=== PATIENT | male | born 1975 | race Caucasian/White ===

== ENCOUNTER 2020-05-15 22:47 | Observation (INO) ==
--- NOTE | 2020-05-15 23:58 | DR.EXTPAIN ---
HPI Time seen Time Seen by Provider: 05/15/20 23:11 PCP Primary Care Physician: SCOTTIE Complaint/Symptoms Chief Complaint Doctor Comments: Patient with History of drug abuse, bipolar disorder and seizures. Patient states he is homeless. Chief Complaint:: "PT ARRIVED EMS WITH STOAMCH PAIN AND OFF METH FOR 2 DAYS. PATIENT SAYS HE WANTS TO GET HELP" COVID-19 Coronavirus risk:travel/contact w/high risk person: No Has patient experienced Coronavirus symptoms: No Nurses notes reviewed Nurses Notes Review: Yes Source History Provided: Patient Mode of arrival Mode of Arrival: EMS Timing Onset of Chief Complaint: 05/13/20 Context History of: None Associated signs and symptoms Associated Signs and Symptoms: Abdominal Pain PMH PMH Past Medical History: Yes Past Medical History: Anxiety, Coronary Artery Disease and Depression Past Medical History Comment: PTSD/OCD/MANIC PARANOIA/ BIPOLAR Past Surgical History: Yes Surgical History: Angioplasty/Stents Family History History of Family Medical Conditions: No Social History Does patient currently use any type of tobacco product: Yes Have you used tobacco products in the last 12 months: Yes Type of Tobacco Use: Cigarettes How many years tobacco product used: 34 Does any household member use tobacco: Yes Alcohol Use: None Do you use any recreational Drugs:: Yes (METH/MARIJUANA) Lives With: Alone Lives Where: Homeless Travel Risk Coronavirus risk:travel/contact w/high risk person: No Has patient experienced Coronavirus symptoms: No Infectious screening In the last 2 months have you had wt loss of >10#?: YES Have you had fever, night sweats or hemotysis?: No Have you traveled outside the country in the last 6 months?: No Isolation: Standard ROS Review of Systems Constitutional: No Symptoms Reported Eyes: No Symptoms Reported ENTM: No Symptoms Reported Respiratoy: No Symptoms Reported Cardiovascular: No Symptoms Reported Gastrointestinal/Abdominal: Abdominal Pain (epigasric); negative Diarrhea and Vomiting Genitourinary: No Symptoms Reported Neurological: No Symptoms Reported Musculoskeletal: No Symptoms Reported Integumentary: No Symptoms Reported Endocrine: No Symptoms Reported Psychiatric: Depression PE Vital Signs Vitals: Temperature 98.9 F Pulse Rate [Right Radial] 78 Pulse Rate 79 Respiratory Rate 20 Blood Pressure [Right Arm] 125/69 Blood Pressure 111/72 O2 Sat by Pulse Oximetry 96 General Limitations: No Limitations General Appearance: Alert and In No Apparent Distress Head Head Exam: Normal Inspection, Atraumatic and Normocephalic Eyes Eye exam: Normal Appearance and EOMI ENT ENT Exam: Normal Exam and Normal Oropharynx Neck Neck Exam: Normal Inspection, Full ROM and Trachea Midline Chest Chest Inspection: Normal Inspection Respiratory Respiratory Exam: Normal Lung Sounds Bilat Respiratory Exam: Bilateral: Clear to Auscultation Cardiovascular Cardiovascular Exam: Regular Rate and Normal Rhythm Abdominal Exam Abdominal Exam: Normal Inspection, Normal Bowel Sounds, Soft and Tenderness; negative Distention and Guarding Abdominal Tenderness: Epigastrium Extremities Extremities Exam: Normal Inspection and Full ROM Upper Extremities Shoulder Exam: Normal Inspection and Full ROM Arm Exam: Normal Inspection and Full ROM Elbow Exam: Normal Inspection and Full ROM Forearm Exam: Normal Inspection and Full ROM Hand Exam: Normal Inspection and Full ROM Neuromotor Exam: Normal Exam Neurosensory Exam: Normal Exam Lower Extremities Hip/Pelvis Exam: Normal Inspection and Full ROM Upper Leg Exam: Normal Inspection and Full ROM Knee Exam: Normal Inspection and Full ROM Lower Leg Exam: Normal Inspection and Full ROM Ankle Exam: Normal Inspection and Full ROM Foot/Toe Exam: Normal Inspection and Full ROM Neurovascular/Tendon Exam: Normal Capillary Refill Back Back Exam: Normal Inspection and Full ROM Neurological Neurological Exam: Alert, Oriented X3, CN II-XII Intact and Normal Gait Psychiatric Psychiatric Exam: Depressed Skin Skin Exam: Normal Color COURSE Consultation Called: 07:11 Call Returned: 07:11 Consultation Comments: case discussed with DR. Aydee aragon ROR Labs Reviewed Result Diagrams: 05/16/20 06:19 05/16/20 00:12 Laboratory: WBC 20.4 X10^3/uL (3.6-10.0) H 05/16/20 06:19 RBC 4.17 X10^6/uL (4.7-6.0) L 05/16/20 06:19 Hgb 12.3 g/dL (13.5-18.0) L 05/16/20 06:19 Hct 36.2 % (42.0-54.0) L 05/16/20 06:19 MCV 86.7 fL (80.0-100.0) 05/16/20 06:19 MCH 29.6 pg (27.0-34.0) 05/16/20 06:19 MCHC 34.1 g/dL (33.0-35.0) 05/16/20 06:19 RDW 13.5 % (11.6-16.5) 05/16/20 06:19 Plt Count 222 X10^3/uL (150.0-450.0) 05/16/20 06:19 MPV 8.2 fL (7.4-11.0) 05/16/20 06:19 Neut % (Auto) 83.7 % (42.0-75.0) H 05/16/20 06:19 Lymph % (Auto) 8.8 % (21.0-51.0) L 05/16/20 06:19 [place] % (Auto) 6.7 % (0.0-13.0) 05/16/20 06:19 Eos % (Auto) 0.4 % (0.9-2.9) L 05/16/20 06:19 Baso % (Auto) 0.4 % (0.2-1.0) 05/16/20 06:19 Neut # (Auto) 17.1 x10^3/uL (2.2-4.8) H 05/16/20 06:19 Lymph # (Auto) 1.8 X10^3/uL (1.3-2.9) 05/16/20 06:19 [place] # (Auto) 1.4 x10^3/uL (0.3-0.8) H 05/16/20 06:19 Eos # (Auto) 0.1 x10^3/uL (0.0-0.2) 05/16/20 06:19 Baso # (Auto) 0.1 X10^3/uL (0.0-0.1) 05/16/20 06:19 Absolute Nucleated RBC 0.0 /100WBC 05/16/20 06:19 Sodium 138 mmol/L (136-145) 05/16/20 00:12 Corrected Sodium 139 mmol/L (136-145) 05/16/20 00:12 Potassium 3.7 mmol/L (3.5-5.1) 05/16/20 00:12 Chloride 101 mmol/L (98-107) 05/16/20 00:12 Carbon Dioxide 28.0 mmol/L (21-32) 05/16/20 00:12 BUN 11 mg/dL (7-18) 05/16/20 00:12 Creatinine 1.12 mg/dL (0.70-1.30) 05/16/20 00:12 Est GFR (MDRD) Af Amer > 60 (>60) 05/16/20 00:12 Est GFR (MDRD) Non-Af > 60 (>60) 05/16/20 00:12 Glucose 129 mg/dL (65-99) H 05/16/20 00:12 Calcium 9.0 mg/dL (8.5-10.1) 05/16/20 00:12 Corrected Calcium TNP 05/16/20 00:12 Total Bilirubin 0.20 mg/dL (0.2-1.0) 05/16/20 00:12 AST 14 Units/L (15-37) L 05/16/20 00:12 ALT 20 Units/L (12-78) 05/16/20 00:12 Alkaline Phosphatase 88 Units/L (46-116) 05/16/20 00:12 Total Protein 6.7 g/dL (6.4-8.2) 05/16/20 00:12 Albumin 3.6 g/dL (3.4-5.0) 05/16/20 00:12 Globulin 3.1 g/dL (2.5-4.5) 05/16/20 00:12 Albumin/Globulin Ratio 1.2 Ratio (1.1-2.1) 05/16/20 00:12 Specimen Type Clean catch urine 05/16/20 04:38 Urine Color Yellow (YELLOW) 05/16/20 04:38 Urine Appearance Clear (CLEAR) 05/16/20 04:38 Urine pH 6.5 (5.0 - 8.0) 05/16/20 04:38 Ur Specific [place] 1.020 (1.000-1.030) 05/16/20 04:38 Urine Protein 1+ (NEGATIVE) 05/16/20 04:38 Urine Glucose (UA) Negative (NEGATIVE) 05/16/20 04:38 Urine Ketones Negative (NEGATIVE) 05/16/20 04:38 Urine Occult Blood 2+ (NEGATIVE) 05/16/20 04:38 Urine Nitrite Negative (NEGATIVE) 05/16/20 04:38 Urine Bilirubin Negative (NEGATIVE) 05/16/20 04:38 Urine Urobilinogen 1+ (NORMAL) 05/16/20 04:38 Ur Leukocyte Esterase 3+ (NEGATIVE) 05/16/20 04:38 Urine RBC 3-5 /HPF (0-3) A 05/16/20 04:38 Urine WBC 5-10 /HPF (0-5) A 05/16/20 04:38 Ur Squamous Epith Cells Few /HPF (NEGATIVE) 05/16/20 04:38 Urine Bacteria 1+ /HPF (NEGATIVE) 05/16/20 04:38 Urine Mucus Numerous /HPF (NEGATIVE) 05/16/20 04:38 Ur Culture Indicated? No/not indicated 05/16/20 04:38 Salicylates 4.6 mg/dL (2.8-20) 05/16/20 00:12 Urine Opiates Screen Negative (NEG=<300) 05/16/20 04:38 Urine Methadone Screen Negative (NEG=<300) 05/16/20 04:38 Acetaminophen 0.0 ug/mL (10-30) L 05/16/20 00:12 Ur Barbiturates Screen Negative (NEG=<200) 05/16/20 04:38 Ur Phencyclidine Scrn Negative (NEG=<25) 05/16/20 04:38 Ur Amphetamines Screen Positive (NEG=<1000) 05/16/20 04:38 U Benzodiazepines Scrn Negative (NEG=<200) 05/16/20 04:38 Urine Cocaine Screen Negative (NEG=<300) 05/16/20 04:38 U Marijuana (THC) Screen Positive (NEG=<50) A 05/16/20 04:38 Ethyl Alcohol mg/dL 3 mg/dL (0-19.9) 05/16/20 00:12 XRAY XRAY Interpreted by: Radiologist X-ray Results: chest: normal Opioid Opioid Risk Tool Age (Jose box if 16-45): Yes Total: 1 Total Score Risk Category: Low Risk Copyright: Kin LEAL predicting aberrant behaviors Diagnosis Discharge Problem: Acute UTI, Amphetamine abuse Elevated WBC count Qualifiers: Leukocytosis type: unspecified Qualified Code(s): D72.829 - Elevated white blood cell count, unspecified Instructions Forms: Precautions for COVID19 Patient Portal Social Distancing
[2020-05-16] MEDS ORDERED: LEVSIN/MAALOX/LIDOC VISC PO ONE (00:10)
[2020-05-16] MEDS ORDERED: LEVSIN/MAALOX/LIDOC VISC ONE (00:13)
[2020-05-16 00:22] LABS: BASOPHILS # (AUTO) 0.1 X10^3/uL (0.0-0.1); BASOPHILS % (AUTO) 0.4 % (0.2-1.0); EOSINOPHILS # (AUTO) 0.2 x10^3/uL (0.0-0.2); EOSINOPHILS % (AUTO) 0.9 % (0.9-2.9); HEMATOCRIT 39.2 % (42.0-54.0); HEMOGLOBIN 13.1 g/dL (13.5-18.0); LYMPHOCYTES # (AUTO) 2.2 X10^3/uL (1.3-2.9); LYMPHOCYTES % (AUTO) 11.9 % (21.0-51.0); MEAN CORPUSCULAR HEMOGLOBIN 29.4 pg (27.0-34.0); MEAN CORPUSCULAR HGB CONC 33.5 g/dL (33.0-35.0); MEAN CORPUSCULAR VOLUME 87.8 fL (80.0-100.0); MEAN PLATELET VOLUME 8.1 fL (7.4-11.0); MONOCYTES # (AUTO) 1.5 x10^3/uL (0.3-0.8); MONOCYTES % (AUTO) 8.1 % (0.0-13.0); NEUTROPHILS # (AUTO) 14.7 x10^3/uL (2.2-4.8); NEUTROPHILS % (AUTO) 78.7 % (42.0-75.0); PLATELET COUNT 234 X10^3/uL (150.0-450.0); RED BLOOD COUNT 4.46 X10^6/uL (4.7-6.0); RED CELL DISTRIBUTION WIDTH 13.6 % (11.6-16.5); WHITE BLOOD COUNT 18.7 X10^3/uL (3.6-10.0)
[2020-05-16 00:35] LABS: SALICYLATE 4.6 mg/dL (2.8-20)
[2020-05-16 00:44] LABS: ALANINE AMINOTRANSFERASE 20 Units/L (12-78); ALBUMIN 3.6 g/dL (3.4-5.0); ALKALINE PHOSPHATASE 88 Units/L (46-116); ASPARTATE AMINO TRANSFERASE 14 Units/L (15-37); BLOOD ALCOHOL 3 mg/dL (0-19.9); BLOOD UREA NITROGEN 11 mg/dL (7-18); CHLORIDE 101 mmol/L (98-107); COR NA(FOR HYPERGLY) 139 mmol/L (136-145); CREATININE 1.12 mg/dL (0.70-1.30); SODIUM 138 mmol/L (136-145); TOTAL PROTEIN 6.7 g/dL (6.4-8.2); eGFR NON BLACK RACES > 60 (>60)
[2020-05-16] MEDS ORDERED: NS 1000 ML 1,000 ML IV ONE (01:01)
--- NOTE | 2020-05-16 01:06 | RAD ---
STUDY: FRONTAL VIEW CHESTCOMPARISON: NoneHISTORY: coughFINDINGS:No focal consolidation is seen.The heart size is within normal limits.The mediastinum is unremarkable.There is no evidence of pleural effusion or gross pneumothorax.The trachea is midline.IMPRESSION:1. No focal consolidation is seen.2. The heart size is normal.Electronically signed by: Artemio Blandon (May 16, 2020 01:04:51)
[2020-05-16] MEDS ORDERED: NS 1000 ML 1,000 ML ONE (01:07)
[2020-05-16 04:46] LABS: BILIRUBIN,URINE NEGATIVE (NEGATIVE); BLOOD/HEMOGLOBIN,URINE 2+ (NEGATIVE); GLUCOSE, URINE NEGATIVE (NEGATIVE); KETONES,URINE NEGATIVE (NEGATIVE); LEUKOCYTE ESTERASE ,URINE 3+ (NEGATIVE); NITRITES,URINE NEGATIVE (NEGATIVE); PH,URINE 6.5 (5.0 - 8.0); PROTEIN,URINE 1+ (NEGATIVE); UROBILINOGEN,URINE 1+ (NORMAL)
[2020-05-16 04:54] LABS: COLOR,URINE YELLOW (YELLOW)
[2020-05-16 04:55] LABS: APPEARANCE,URINE CLEAR (CLEAR); BACTERIA,URINE 1+ /HPF (NEGATIVE); MUCUS,URINE NUMEROUS /HPF (NEGATIVE); SQUAMOUS EPITHELIAL CELL,UR FEW /HPF (NEGATIVE)
[2020-05-16] MEDS ORDERED: ROCEPHIN VIAL 1 GRAM 1 G in NS 100 ML IV + SPIKE MINIBAG* 100 ML IV STA (06:03)
[2020-05-16] MEDS ORDERED: ROCEPHIN VIAL 1 GRAM ONE (06:21)
[2020-05-16] MEDS ORDERED: NS 100 ML IV + SPIKE MINIBAG* 100 ML IV ONE (06:21)
[2020-05-16] MEDS ORDERED: NS 100 ML IV 100 ML IV ONE (06:28)
[2020-05-16] MEDS: NS 100 ML IV 100 ML IV SCH ×2 (06:35→08:52)
[2020-05-16] MEDS ORDERED: MOTRIN TAB 800 MG PO STA (06:37)
[2020-05-16 06:50] LABS: BASOPHILS # (AUTO) 0.1 X10^3/uL (0.0-0.1); BASOPHILS % (AUTO) 0.4 % (0.2-1.0); EOSINOPHILS # (AUTO) 0.1 x10^3/uL (0.0-0.2); EOSINOPHILS % (AUTO) 0.4 % (0.9-2.9); HEMATOCRIT 36.2 % (42.0-54.0); HEMOGLOBIN 12.3 g/dL (13.5-18.0); LYMPHOCYTES # (AUTO) 1.8 X10^3/uL (1.3-2.9); LYMPHOCYTES % (AUTO) 8.8 % (21.0-51.0); MEAN CORPUSCULAR HEMOGLOBIN 29.6 pg (27.0-34.0); MEAN CORPUSCULAR HGB CONC 34.1 g/dL (33.0-35.0); MEAN CORPUSCULAR VOLUME 86.7 fL (80.0-100.0); MEAN PLATELET VOLUME 8.2 fL (7.4-11.0); MONOCYTES # (AUTO) 1.4 x10^3/uL (0.3-0.8); MONOCYTES % (AUTO) 6.7 % (0.0-13.0); NEUTROPHILS # (AUTO) 17.1 x10^3/uL (2.2-4.8); NEUTROPHILS % (AUTO) 83.7 % (42.0-75.0); PLATELET COUNT 222 X10^3/uL (150.0-450.0); RED BLOOD COUNT 4.17 X10^6/uL (4.7-6.0); RED CELL DISTRIBUTION WIDTH 13.5 % (11.6-16.5); WHITE BLOOD COUNT 20.4 X10^3/uL (3.6-10.0)
[2020-05-16] MEDS ORDERED: MOTRIN TAB 800 MG PO ONE (06:56)
[2020-05-16] MEDS ORDERED: ZOFRAN INJ 4 MG VIAL IVP PRN (07:21)
[2020-05-16] MEDS ORDERED: PROTONIX INJ 40 MG VIAL IVP SCH (09:00)
[2020-05-16] MEDS: NS 1000 ML 1,000 ML IV SCH ×2 (09:50→17:36)
[2020-05-16 10:33] VITALS: BMI 27.8
[2020-05-16] MEDS ORDERED: PROVENTIL NEB TX 0.083% 2.5MG/ 3ML NEB PRN (11:19)
--- NOTE | 2020-05-16 11:30 | DR.H&P ---
H&P History & Physical for Day of: H&P Date: 05/16/20 Chief Complaint Chief Complaint: abdominal pain, meth use Allergies Allergies Allergy/AdvReac Type Severity Reaction Status Date / Time No Known Drug Allergies Allergy Verified 05/16/20 05:32 History of Present Illness History of Present Illness: Mr. Oconnor is a 44y/o male with a PMH of methamphetamine abuse, bipolar, seizures and CAD s/p PCI presented with nausea and abdominal pain. Patient states he used meth 3 days ago. He states his abdominal pain is better now. He also has a hx of GERD. He sees [facility] for his psych history. He has been afebrile, denies chills. ED work-up- WBC 18.4, now 20.4 Hgb 12.3 Na 139 K 3.7 BUN/Cr: 04/04.12 UA: WBC present, NONI 3+ Bacteria present CXR (-) COVID-19 (-) He was started on IVF, anti-emetics and Rocephin. He also received pantoprazole and GI cocktail. Plan: continue gentle hydration, anti-emetics. Check lipase, monitor AM labs. Continue pantoprazole. Advance diet as tolerated. Follow urine culture. Continue Rocephin. Resume home medications. Past Medical History Past Medical History: Anxiety, Coronary Artery Disease, Depression and GERD Additional Medical History: Drug abuse Past Surgical History Surgical History: Angioplasty/Stents Family History Family Medical History: Coronary Artery Disease and Hypertension Social History Does patient currently use any type of tobacco product: Yes Have you used tobacco products in the last 12 months: Yes Type of Tobacco Use: Cigarettes How many years tobacco product used: 30 Does any household member use tobacco: Yes (my family) Alcohol Use: Occasionally Drug Use: Methamphetamine, Marijuana and Other Medications Home Medications: No Known Drug Allergies Allergy (Verified 05/16/20 05:32) CONTINUE taking the following medications albuterol sulfate [ProAir HFA] 2 inh INHALATION Q4-6H PRN 05/16/20 [History] alum-mag hydroxide-simeth [Maalox Advanced] 10 ml PO Q4H PRN 05/16/20 [History] benztropine 1 mg PO HS 05/16/20 [History] buspirone 15 mg PO BID 05/16/20 [History] clopidogrel 75 mg PO DAILY 05/16/20 [History] divalproex [Depakote] 1,000 mg PO HS 05/16/20 [History] esomeprazole magnesium 40 mg PO DAILY 05/16/20 [History] fluoxetine 40 mg PO DAILY 05/16/20 [History] food supplemt, lactose-reduced [Ensure] 1 ea PO DAILY 05/16/20 [History] gabapentin 100 mg PO DAILY 05/16/20 [History] gabapentin 300 mg PO HS 05/16/20 [History] hydroxyzine pamoate 50 mg PO Q8H PRN 05/16/20 [History] ibuprofen [IBU-200] 200 mg PO Q4H PRN 05/16/20 [History] metoprolol succinate 50 mg PO DAILY 05/16/20 [History] multivitamin 1 tab PO DAILY 05/16/20 [History] nicotine 21 mg TRANSDERMAL DAILY 05/16/20 [History] ondansetron HCl [Zofran] 4 mg PO Q8H PRN 05/16/20 [History] prazosin 1 mg PO HS 05/16/20 [History] risperidone [Risperdal] 2 mg PO HS 05/16/20 [History] trazodone 50 mg PO HS 05/16/20 [History] Labs Result Diagrams: 05/16/20 06:19 05/16/20 00:12 Labs: Laboratory WBC 20.4 X10^3/uL (3.6-10.0) H 05/16/20 06:19 RBC 4.17 X10^6/uL (4.7-6.0) L 05/16/20 06:19 Hgb 12.3 g/dL (13.5-18.0) L 05/16/20 06:19 Hct 36.2 % (42.0-54.0) L 05/16/20 06:19 MCV 86.7 fL (80.0-100.0) 05/16/20 06:19 MCH 29.6 pg (27.0-34.0) 05/16/20 06:19 MCHC 34.1 g/dL (33.0-35.0) 05/16/20 06:19 RDW 13.5 % (11.6-16.5) 05/16/20 06:19 Plt Count 222 X10^3/uL (150.0-450.0) 05/16/20 06:19 MPV 8.2 fL (7.4-11.0) 05/16/20 06:19 Neut % (Auto) 83.7 % (42.0-75.0) H 05/16/20 06:19 Lymph % (Auto) 8.8 % (21.0-51.0) L 05/16/20 06:19 [place] % (Auto) 6.7 % (0.0-13.0) 05/16/20 06:19 Eos % (Auto) 0.4 % (0.9-2.9) L 05/16/20 06:19 Baso % (Auto) 0.4 % (0.2-1.0) 05/16/20 06:19 Neut # (Auto) 17.1 x10^3/uL (2.2-4.8) H 05/16/20 06:19 Lymph # (Auto) 1.8 X10^3/uL (1.3-2.9) 05/16/20 06:19 [place] # (Auto) 1.4 x10^3/uL (0.3-0.8) H 05/16/20 06:19 Eos # (Auto) 0.1 x10^3/uL (0.0-0.2) 05/16/20 06:19 Baso # (Auto) 0.1 X10^3/uL (0.0-0.1) 05/16/20 06:19 Absolute Nucleated RBC 0.0 /100WBC 05/16/20 06:19 Sodium 138 mmol/L (136-145) 05/16/20 00:12 Corrected Sodium 139 mmol/L (136-145) 05/16/20 00:12 Potassium 3.7 mmol/L (3.5-5.1) 05/16/20 00:12 Chloride 101 mmol/L (98-107) 05/16/20 00:12 Carbon Dioxide 28.0 mmol/L (21-32) 05/16/20 00:12 BUN 11 mg/dL (7-18) 05/16/20 00:12 Creatinine 1.12 mg/dL (0.70-1.30) 05/16/20 00:12 Est GFR (MDRD) Af Amer > 60 (>60) 05/16/20 00:12 Est GFR (MDRD) Non-Af > 60 (>60) 05/16/20 00:12 Glucose 129 mg/dL (65-99) H 05/16/20 00:12 Calcium 9.0 mg/dL (8.5-10.1) 05/16/20 00:12 Corrected Calcium TNP 05/16/20 00:12 Magnesium 1.9 mg/dL (1.7-2.9) 05/16/20 00:12 Total Bilirubin 0.20 mg/dL (0.2-1.0) 05/16/20 00:12 AST 14 Units/L (15-37) L 05/16/20 00:12 ALT 20 Units/L (12-78) 05/16/20 00:12 Alkaline Phosphatase 88 Units/L (46-116) 05/16/20 00:12 Total Protein 6.7 g/dL (6.4-8.2) 05/16/20 00:12 Albumin 3.6 g/dL (3.4-5.0) 05/16/20 00:12 Globulin 3.1 g/dL (2.5-4.5) 05/16/20 00:12 Albumin/Globulin Ratio 1.2 Ratio (1.1-2.1) 05/16/20 00:12 Specimen Type Clean catch urine 05/16/20 04:38 Urine Color Yellow (YELLOW) 05/16/20 04:38 Urine Appearance Clear (CLEAR) 05/16/20 04:38 Urine pH 6.5 (5.0 - 8.0) 05/16/20 04:38 Ur Specific [place] 1.020 (1.000-1.030) 05/16/20 04:38 Urine Protein 1+ (NEGATIVE) 05/16/20 04:38 Urine Glucose (UA) Negative (NEGATIVE) 05/16/20 04:38 Urine Ketones Negative (NEGATIVE) 05/16/20 04:38 Urine Occult Blood 2+ (NEGATIVE) 05/16/20 04:38 Urine Nitrite Negative (NEGATIVE) 05/16/20 04:38 Urine Bilirubin Negative (NEGATIVE) 05/16/20 04:38 Urine Urobilinogen 1+ (NORMAL) 05/16/20 04:38 Ur Leukocyte Esterase 3+ (NEGATIVE) 05/16/20 04:38 Urine RBC 3-5 /HPF (0-3) A 05/16/20 04:38 Urine WBC 5-10 /HPF (0-5) A 05/16/20 04:38 Ur Squamous Epith Cells Few /HPF (NEGATIVE) 05/16/20 04:38 Urine Bacteria 1+ /HPF (NEGATIVE) 05/16/20 04:38 Urine Mucus Numerous /HPF (NEGATIVE) 05/16/20 04:38 Ur Culture Indicated? No/not indicated 05/16/20 04:38 Salicylates 4.6 mg/dL (2.8-20) 05/16/20 00:12 Urine Opiates Screen Negative (NEG=<300) 05/16/20 04:38 Urine Methadone Screen Negative (NEG=<300) 05/16/20 04:38 Acetaminophen 0.0 ug/mL (10-30) L 05/16/20 00:12 Ur Barbiturates Screen Negative (NEG=<200) 05/16/20 04:38 Ur Phencyclidine Scrn Negative (NEG=<25) 05/16/20 04:38 Ur Amphetamines Screen Positive (NEG=<1000) 05/16/20 04:38 U Benzodiazepines Scrn Negative (NEG=<200) 05/16/20 04:38 Urine Cocaine Screen Negative (NEG=<300) 05/16/20 04:38 U Marijuana (THC) Screen Positive (NEG=<50) A 05/16/20 04:38 Ethyl Alcohol mg/dL 3 mg/dL (0-19.9) 05/16/20 00:12 SARS CoV-2 RNA Rapid MICAELA Negative (NEGATIVE) 05/16/20 07:21 Review of Systems Constitutional: Malaise Eyes: No Symptoms Reported ENT: No Symptoms Reported Respiratory: No Symptoms Reported Gastrointestinal: Nausea and Abdominal Pain Genitourinary: No Symptoms Reported Musculoskeletal: No Symptoms Reported Skin: No Symptoms Reported Neurological: No Symptoms Reported Physical Exam Vital Signs: Temperature 97.7 F Pulse Rate [Right Radial] 88 Pulse Rate 79 Respiratory Rate 20 Blood Pressure [Left Arm] 136/82 Blood Pressure [Right Arm] 125/69 Blood Pressure 111/72 O2 Sat by Pulse Oximetry 97 Oriented: Normal Eyes: Normal Nose: Normal Throat: Normal Respiratory: Diminished Throughout Cardiovascular: Tachycardia Auscultation: Bowel Sounds: Normal Palpation: Normal Tenderness: Epigastric and Mild Skin: Normal Musculoskeletal: Normal Psychiatric: Normal Mood Description: Calm Affect: Normal Speech Pattern: Clear and Appropriate Assessment/Plan (1) Acute UTI: Status: Acute (2) Amphetamine abuse: Status: Acute (3) Dehydration: Status: Acute (4) CAD (coronary artery disease): Qualifiers: Coronary Disease-Associated Artery/Lesion type: unspecified vessel or lesion type [place] vs. transplanted heart: three affiliated heart Associated angina: without angina Qualified Code(s): I25.10 - Atherosclerotic heart disease of three affiliated coronary artery without angina pectoris Status: Acute (5) Bipolar disorder: Qualifiers: Active/Remission status: remission status unspecified Qualified Code(s): F31.9 - Bipolar disorder, unspecified Status: Acute (6) Seizures: Status: Acute Review H&P Reviewed: Yes Patient was examined?: Yes
[2020-05-16] MEDS: PLAVIX PO SCH (13:43)
[2020-05-16] MEDS: BUSPAR PO SCH ×2 (13:43→21:13)
[2020-05-16] MEDS: TOPROL XL PO SCH (13:43)
[2020-05-16] MEDS: NEURONTIN CAP 100 MG PO SCH (13:43)
[2020-05-16] MEDS: PROzac PO SCH (13:44)
[2020-05-16] MEDS: MOTRIN TAB 800 MG PO PRN (18:02)
[2020-05-16] MEDS ORDERED: DEPAKOTE D.R. TAB PO ONE (20:13)
[2020-05-16] MEDS: COGENTIN TAB 1 MG PO SCH (21:13)
[2020-05-16] MEDS: DEPAKOTE D.R. TAB PO SCH (21:13)
[2020-05-16] MEDS: NEURONTIN CAP 300 MG PO SCH (21:13)
[2020-05-16] MEDS: RisperDAL TAB 1 MG PO SCH (21:14)
[2020-05-17] MEDS: NS 1000 ML 1,000 ML IV SCH ×4 (02:01→22:44)
[2020-05-17 06:11] LABS: BASOPHILS # (AUTO) 0.1 X10^3/uL (0.0-0.1); BASOPHILS % (AUTO) 0.4 % (0.2-1.0); EOSINOPHILS # (AUTO) 0.3 x10^3/uL (0.0-0.2); EOSINOPHILS % (AUTO) 1.7 % (0.9-2.9); HEMATOCRIT 37.2 % (42.0-54.0); HEMOGLOBIN 12.5 g/dL (13.5-18.0); LYMPHOCYTES # (AUTO) 2.7 X10^3/uL (1.3-2.9); LYMPHOCYTES % (AUTO) 14.4 % (21.0-51.0); MEAN CORPUSCULAR HEMOGLOBIN 29.5 pg (27.0-34.0); MEAN CORPUSCULAR HGB CONC 33.5 g/dL (33.0-35.0); MEAN CORPUSCULAR VOLUME 88.1 fL (80.0-100.0); MEAN PLATELET VOLUME 8.5 fL (7.4-11.0); MONOCYTES # (AUTO) 1.4 x10^3/uL (0.3-0.8); MONOCYTES % (AUTO) 7.8 % (0.0-13.0); NEUTROPHILS # (AUTO) 14.1 x10^3/uL (2.2-4.8); NEUTROPHILS % (AUTO) 75.7 % (42.0-75.0); PLATELET COUNT 219 X10^3/uL (150.0-450.0); RED BLOOD COUNT 4.22 X10^6/uL (4.7-6.0); RED CELL DISTRIBUTION WIDTH 13.8 % (11.6-16.5); WHITE BLOOD COUNT 18.6 X10^3/uL (3.6-10.0)
[2020-05-17 06:35] LABS: ALANINE AMINOTRANSFERASE 16 Units/L (12-78); ALBUMIN 2.7 g/dL (3.4-5.0); ALKALINE PHOSPHATASE 79 Units/L (46-116); ASPARTATE AMINO TRANSFERASE 10 Units/L (15-37); BLOOD UREA NITROGEN 10 mg/dL (7-18); CALCIUM 8.5 mg/dL (8.5-10.1); CHLORIDE 104 mmol/L (98-107); COR CA(FOR HYPOALB) 9.5 mg/dL (8.5-10.1); CREATININE 0.83 mg/dL (0.70-1.30); SODIUM 137 mmol/L (136-145); TOTAL PROTEIN 6.1 g/dL (6.4-8.2); eGFR NON BLACK RACES > 60 (>60)
[2020-05-17 06:40] LABS: CARBON DIOXIDE 24.8 mmol/L (21-32)
[2020-05-17] MEDS ORDERED: LEVSIN/MAALOX/LIDOC VISC PO ONE (08:18)
[2020-05-17] MEDS: PLAVIX PO SCH (10:01)
[2020-05-17] MEDS: ROCEPHIN VIAL 1 GRAM 1 G in NS 100 ML IV + SPIKE MINIBAG* 100 ML IV SCH (10:01)
[2020-05-17] MEDS: NEURONTIN CAP 100 MG PO SCH (10:02)
[2020-05-17] MEDS: PROTONIX TAB 40 MG PO SCH (10:02)
[2020-05-17] MEDS: TOPROL XL PO SCH (10:02)
[2020-05-17] MEDS: TAB-A-VITE PO SCH (10:03)
[2020-05-17] MEDS: PROzac PO SCH (10:03)
[2020-05-17] MEDS: BUSPAR PO SCH ×2 (10:16→20:21)
--- NOTE | 2020-05-17 13:21 | PCM.PROG ---
Progress Note Progress Note for Day of Date of Exam: 05/17/20 Subjective Subjective: Patient seen at bedside, no events overnight. Patient states he is feeling better. He was able to tolerate his soft diet yesterday. Denies N/V/D. He states abdominal pain is better. Denies fever or chills. Labs: Hgb 12.5 BUN/Cr: 10/0.83 WBC 18.6 Urine Cx: no growth Blood Cx: pending Plan: continue gentle hydration, Rocephin. Continue pantoprazole and GI cocktail. Advance diet as tolerated. Past Medical Family Social History Past Med/Fam/Surg Hx: No changes since H&P Allergies: Allergies No Known Drug Allergies Allergy (Verified 05/16/20 05:32) Review of Systems ROS: No change since H&P Vital Signs and I&O's Vital Signs: Temperature 97.6 F Pulse Rate [Right Radial] 68 Pulse Rate 79 Respiratory Rate 18 Blood Pressure [Left Arm] 131/83 Blood Pressure [Right Arm] 125/69 Blood Pressure 111/72 O2 Sat by Pulse Oximetry 98 Intake and Output: Intake & Output 05/14/20 05/15/20 05/16/20 05/17/20 23:59 23:59 23:59 23:59 Intake Total 3126 / 3126 1060 / 1060 Output Total 950 / 950 1100 / 1100 Balance 2176 / 2176 -40 / -40 Physical Exam Oriented: Normal Eyes: Normal Nose: Normal Throat: Normal Cardiovascular: Normal Auscultation: Bowel Sounds: Normal Tenderness: Epigastric and Mild Skin: Normal Musculoskeletal: Normal Psychiatric: Normal Mood Description: Calm Affect: Normal Speech Pattern: Clear and Appropriate Laboratory and Diagnostics Result Diagrams: 05/17/20 05:43 05/17/20 05:43 Labs: 05/16/20 14:16 Urine,Clean Catch Urine Culture - Preliminary Laboratory WBC 18.6 X10^3/uL (3.6-10.0) H 05/17/20 05:43 RBC 4.22 X10^6/uL (4.7-6.0) L 05/17/20 05:43 Hgb 12.5 g/dL (13.5-18.0) L 05/17/20 05:43 Hct 37.2 % (42.0-54.0) L 05/17/20 05:43 MCV 88.1 fL (80.0-100.0) 05/17/20 05:43 MCH 29.5 pg (27.0-34.0) 05/17/20 05:43 MCHC 33.5 g/dL (33.0-35.0) 05/17/20 05:43 RDW 13.8 % (11.6-16.5) 05/17/20 05:43 Plt Count 219 X10^3/uL (150.0-450.0) 05/17/20 05:43 MPV 8.5 fL (7.4-11.0) 05/17/20 05:43 Neut % (Auto) 75.7 % (42.0-75.0) H 05/17/20 05:43 Lymph % (Auto) 14.4 % (21.0-51.0) L 05/17/20 05:43 [place] % (Auto) 7.8 % (0.0-13.0) 05/17/20 05:43 Eos % (Auto) 1.7 % (0.9-2.9) 05/17/20 05:43 Baso % (Auto) 0.4 % (0.2-1.0) 05/17/20 05:43 Neut # (Auto) 14.1 x10^3/uL (2.2-4.8) H 05/17/20 05:43 Lymph # (Auto) 2.7 X10^3/uL (1.3-2.9) 05/17/20 05:43 [place] # (Auto) 1.4 x10^3/uL (0.3-0.8) H 05/17/20 05:43 Eos # (Auto) 0.3 x10^3/uL (0.0-0.2) H 05/17/20 05:43 Baso # (Auto) 0.1 X10^3/uL (0.0-0.1) 05/17/20 05:43 Absolute Nucleated RBC 0.0 /100WBC 05/17/20 05:43 Sodium 137 mmol/L (136-145) 05/17/20 05:43 Corrected Sodium TNP 05/17/20 05:43 Potassium 4.1 mmol/L (3.5-5.1) 05/17/20 05:43 Chloride 104 mmol/L (98-107) 05/17/20 05:43 Carbon Dioxide 24.8 mmol/L (21-32) 05/17/20 05:43 BUN 10 mg/dL (7-18) 05/17/20 05:43 Creatinine 0.83 mg/dL (0.70-1.30) 05/17/20 05:43 Est GFR (MDRD) Af Amer > 60 (>60) 05/17/20 05:43 Est GFR (MDRD) Non-Af > 60 (>60) 05/17/20 05:43 Glucose 91 mg/dL (65-99) 05/17/20 05:43 Calcium 8.5 mg/dL (8.5-10.1) 05/17/20 05:43 Corrected Calcium 9.5 mg/dL (8.5-10.1) 05/17/20 05:43 Magnesium 1.9 mg/dL (1.7-2.9) 05/16/20 00:12 Total Bilirubin 0.20 mg/dL (0.2-1.0) 05/17/20 05:43 AST 10 Units/L (15-37) L 05/17/20 05:43 ALT 16 Units/L (12-78) 05/17/20 05:43 Alkaline Phosphatase 79 Units/L (46-116) 05/17/20 05:43 Total Protein 6.1 g/dL (6.4-8.2) L 05/17/20 05:43 Albumin 2.7 g/dL (3.4-5.0) L 05/17/20 05:43 Globulin 3.4 g/dL (2.5-4.5) 05/17/20 05:43 Albumin/Globulin Ratio 0.8 Ratio (1.1-2.1) L 05/17/20 05:43 Lipase 120 Units/L (73-393) 05/16/20 00:12 Specimen Type Clean catch urine 05/16/20 04:38 Urine Color Yellow (YELLOW) 05/16/20 04:38 Urine Appearance Clear (CLEAR) 05/16/20 04:38 Urine pH 6.5 (5.0 - 8.0) 05/16/20 04:38 Ur Specific [place] 1.020 (1.000-1.030) 05/16/20 04:38 Urine Protein 1+ (NEGATIVE) 05/16/20 04:38 Urine Glucose (UA) Negative (NEGATIVE) 05/16/20 04:38 Urine Ketones Negative (NEGATIVE) 05/16/20 04:38 Urine Occult Blood 2+ (NEGATIVE) 05/16/20 04:38 Urine Nitrite Negative (NEGATIVE) 05/16/20 04:38 Urine Bilirubin Negative (NEGATIVE) 05/16/20 04:38 Urine Urobilinogen 1+ (NORMAL) 05/16/20 04:38 Ur Leukocyte Esterase 3+ (NEGATIVE) 05/16/20 04:38 Urine RBC 3-5 /HPF (0-3) A 05/16/20 04:38 Urine WBC 5-10 /HPF (0-5) A 05/16/20 04:38 Ur Squamous Epith Cells Few /HPF (NEGATIVE) 05/16/20 04:38 Urine Bacteria 1+ /HPF (NEGATIVE) 05/16/20 04:38 Urine Mucus Numerous /HPF (NEGATIVE) 05/16/20 04:38 Ur Culture Indicated? No/not indicated 05/16/20 04:38 Salicylates 4.6 mg/dL (2.8-20) 05/16/20 00:12 Urine Opiates Screen Negative (NEG=<300) 05/16/20 04:38 Urine Methadone Screen Negative (NEG=<300) 05/16/20 04:38 Acetaminophen 0.0 ug/mL (10-30) L 05/16/20 00:12 Ur Barbiturates Screen Negative (NEG=<200) 05/16/20 04:38 Ur Phencyclidine Scrn Negative (NEG=<25) 05/16/20 04:38 Ur Amphetamines Screen Positive (NEG=<1000) 05/16/20 04:38 U Benzodiazepines Scrn Negative (NEG=<200) 05/16/20 04:38 Urine Cocaine Screen Negative (NEG=<300) 05/16/20 04:38 U Marijuana (THC) Screen Positive (NEG=<50) A 05/16/20 04:38 Ethyl Alcohol mg/dL 3 mg/dL (0-19.9) 05/16/20 00:12 SARS CoV-2 RNA Rapid MICAELA Negative (NEGATIVE) 05/16/20 07:21 Plan (1) Acute UTI: Status: Acute (2) Amphetamine abuse: Status: Acute (3) Dehydration: Status: Acute (4) CAD (coronary artery disease): Status: Acute Qualifiers: Associated angina: without angina Coronary Disease-Associated Artery/Lesion type: unspecified vessel or lesion type [place] vs. transplanted heart: [place] heart Qualified Code(s): I25.10 - Atherosclerotic heart disease of [place] coronary artery without angina pectoris (5) Bipolar disorder: Status: Acute Qualifiers: Active/Remission status: remission status unspecified Qualified Co de(s): F31.9 - Bipolar disorder, unspecified (6) Seizures: Status: Acute
[2020-05-17] MEDS: NICOTINE PATCH TD SCH (15:12)
[2020-05-17] MEDS: MOTRIN TAB 800 MG PO PRN (18:22)
[2020-05-17] MEDS ORDERED: DEPAKOTE D.R. TAB PO ONE (19:22)
[2020-05-17] MEDS: RisperDAL TAB 1 MG PO SCH (20:21)
[2020-05-17] MEDS: NEURONTIN CAP 300 MG PO SCH (20:21)
[2020-05-17] MEDS: DEPAKOTE D.R. TAB PO SCH (20:21)
[2020-05-17] MEDS: COGENTIN TAB 1 MG PO SCH (20:21)
[2020-05-17] MEDS ORDERED: RESTORIL CAP 15 MG PO PRN (21:48)
[2020-05-18] MEDS: NS 1000 ML 1,000 ML IV SCH ×2 (00:53→09:03)
[2020-05-18 06:09] LABS: BASOPHILS # (AUTO) 0.1 X10^3/uL (0.0-0.1); BASOPHILS % (AUTO) 0.6 % (0.2-1.0); EOSINOPHILS # (AUTO) 0.4 x10^3/uL (0.0-0.2); EOSINOPHILS % (AUTO) 4.3 % (0.9-2.9); HEMATOCRIT 35.1 % (42.0-54.0); HEMOGLOBIN 11.9 g/dL (13.5-18.0); LYMPHOCYTES # (AUTO) 3.4 X10^3/uL (1.3-2.9); LYMPHOCYTES % (AUTO) 38.1 % (21.0-51.0); MEAN CORPUSCULAR HEMOGLOBIN 29.9 pg (27.0-34.0); MEAN CORPUSCULAR HGB CONC 33.8 g/dL (33.0-35.0); MEAN CORPUSCULAR VOLUME 88.4 fL (80.0-100.0); MEAN PLATELET VOLUME 8.5 fL (7.4-11.0); MONOCYTES # (AUTO) 0.7 x10^3/uL (0.3-0.8); MONOCYTES % (AUTO) 7.5 % (0.0-13.0); NEUTROPHILS # (AUTO) 4.4 x10^3/uL (2.2-4.8); NEUTROPHILS % (AUTO) 49.5 % (42.0-75.0); PLATELET COUNT 214 X10^3/uL (150.0-450.0); RED BLOOD COUNT 3.97 X10^6/uL (4.7-6.0); RED CELL DISTRIBUTION WIDTH 13.6 % (11.6-16.5); WHITE BLOOD COUNT 8.8 X10^3/uL (3.6-10.0)
[2020-05-18 06:39] LABS: BLOOD UREA NITROGEN 11 mg/dL (7-18); CALCIUM 8.8 mg/dL (8.5-10.1); CARBON DIOXIDE 26.4 mmol/L (21-32); CHLORIDE 107 mmol/L (98-107); CREATININE 0.82 mg/dL (0.70-1.30); SODIUM 142 mmol/L (136-145); eGFR NON BLACK RACES > 60 (>60)
[2020-05-18 07:31] VITALS: BP 167/67
--- NOTE | 2020-05-18 08:22 | W.DIS.FURT ---
Summary of Discharge Admission Diagnosis Patient Problems (Updated 05/16/20 @ 11:59 by Emma Dolan) Acute UTI (Acute) N39.0 Amphetamine abuse (Acute) F15.10 Elevated WBC count (Acute) D72.829 Vital Signs: Vital Signs (72 hours) 05/15/20 22:50 05/16/20 00:16 05/16/20 04:00 Temperature 98.6 F 98.9 F Pulse Rate 79 Pulse Rate [Right Radial] 78 Respiratory Rate 18 20 18 Blood Pressure 111/72 Blood Pressure [Left Arm] Blood Pressure [Right Arm] 125/69 O2 Sat by Pulse Oximetry 98 96 05/16/20 06:56 05/16/20 08:40 05/16/20 12:00 Temperature 97.7 F 98.3 F Pulse Rate Pulse Rate [Right Radial] 88 67 Respiratory Rate 20 20 18 Blood Pressure Blood Pressure [Left Arm] 136/82 137/72 Blood Pressure [Right Arm] O2 Sat by Pulse Oximetry 97 98 05/16/20 16:00 05/16/20 18:02 05/16/20 19:02 Temperature 99.5 F Pulse Rate Pulse Rate [Right Radial] 67 Respiratory Rate 20 20 20 Blood Pressure Blood Pressure [Left Arm] 149/75 Blood Pressure [Right Arm] O2 Sat by Pulse Oximetry 98 05/16/20 20:00 05/17/20 00:00 05/17/20 04:00 Temperature 98.4 F 98.6 F 98.0 F Pulse Rate Pulse Rate [Right Radial] 64 81 76 Respiratory Rate 20 22 18 Blood Pressure Blood Pressure [Left Arm] 120/59 125/70 114/63 Blood Pressure [Right Arm] O2 Sat by Pulse Oximetry 98 97 98 05/17/20 08:00 05/17/20 10:17 05/17/20 11:17 Temperature 97.6 F Pulse Rate Pulse Rate [Right Radial] 68 Respiratory Rate 20 17 18 Blood Pressure Blood Pressure [Left Arm] 131/83 Blood Pressure [Right Arm] O2 Sat by Pulse Oximetry 98 05/17/20 12:00 05/17/20 16:00 05/17/20 18:22 Temperature 98.4 F 98.8 F Pulse Rate Pulse Rate [Right Radial] 63 63 Respiratory Rate 20 20 18 Blood Pressure Blood Pressure [Left Arm] 156/84 126/111 Blood Pressure [Right Arm] O2 Sat by Pulse Oximetry 96 98 05/17/20 19:22 05/17/20 20:00 05/18/20 00:00 Temperature 98.4 F 97.8 F Pulse Rate Pulse Rate [Right Radial] 55 L 52 L Respiratory Rate 18 20 24 Blood Pressure Blood Pressure [Left Arm] 136/79 118/59 Blood Pressure [Right Arm] O2 Sat by Pulse Oximetry 97 96 05/18/20 04:40 05/18/20 07:31 Temperature 97.6 F 98.1 F Pulse Rate Pulse Rate [Right Radial] 50 L 54 L Respiratory Rate 22 20 Blood Pressure Blood Pressure [Left Arm] 132/75 167/67 Blood Pressure [Right Arm] O2 Sat by Pulse Oximetry 96 98 Labs: Laboratory Last Values WBC 8.8 X10^3/uL (3.6-10.0) D 05/18/20 05:40 RBC 3.97 X10^6/uL (4.7-6.0) L 05/18/20 05:40 Hgb 11.9 g/dL (13.5-18.0) L 05/18/20 05:40 Hct 35.1 % (42.0-54.0) L 05/18/20 05:40 MCV 88.4 fL (80.0-100.0) 05/18/20 05:40 MCH 29.9 pg (27.0-34.0) 05/18/20 05:40 MCHC 33.8 g/dL (33.0-35.0) 05/18/20 05:40 RDW 13.6 % (11.6-16.5) 05/18/20 05:40 Plt Count 214 X10^3/uL (150.0-450.0) 05/18/20 05:40 MPV 8.5 fL (7.4-11.0) 05/18/20 05:40 Neut % (Auto) 49.5 % (42.0-75.0) 05/18/20 05:40 Lymph % (Auto) 38.1 % (21.0-51.0) 05/18/20 05:40 [place] % (Auto) 7.5 % (0.0-13.0) 05/18/20 05:40 Eos % (Auto) 4.3 % (0.9-2.9) H 05/18/20 05:40 Baso % (Auto) 0.6 % (0.2-1.0) 05/18/20 05:40 Neut # (Auto) 4.4 x10^3/uL (2.2-4.8) 05/18/20 05:40 Lymph # (Auto) 3.4 X10^3/uL (1.3-2.9) H 05/18/20 05:40 [place] # (Auto) 0.7 x10^3/uL (0.3-0.8) 05/18/20 05:40 Eos # (Auto) 0.4 x10^3/uL (0.0-0.2) H 05/18/20 05:40 Baso # (Auto) 0.1 X10^3/uL (0.0-0.1) 05/18/20 05:40 Absolute Nucleated RBC 0.0 /100WBC 05/18/20 05:40 Sodium 142 mmol/L (136-145) 05/18/20 05:40 Corrected Sodium TNP 05/18/20 05:40 Potassium 4.0 mmol/L (3.5-5.1) 05/18/20 05:40 Chloride 107 mmol/L (98-107) 05/18/20 05:40 Carbon Dioxide 26.4 mmol/L (21-32) 05/18/20 05:40 BUN 11 mg/dL (7-18) 05/18/20 05:40 Creatinine 0.82 mg/dL (0.70-1.30) 05/18/20 05:40 Est GFR (MDRD) Af Amer > 60 (>60) 05/18/20 05:40 Est GFR (MDRD) Non-Af > 60 (>60) 05/18/20 05:40 Glucose 105 mg/dL (65-99) H 05/18/20 05:40 Calcium 8.8 mg/dL (8.5-10.1) 05/18/20 05:40 Corrected Calcium 9.5 mg/dL (8.5-10.1) 05/17/20 05:43 Magnesium 1.9 mg/dL (1.7-2.9) 05/16/20 00:12 Total Bilirubin 0.20 mg/dL (0.2-1.0) 05/17/20 05:43 AST 10 Units/L (15-37) L 05/17/20 05:43 ALT 16 Units/L (12-78) 05/17/20 05:43 Alkaline Phosphatase 79 Units/L (46-116) 05/17/20 05:43 Total Protein 6.1 g/dL (6.4-8.2) L 05/17/20 05:43 Albumin 2.7 g/dL (3.4-5.0) L 05/17/20 05:43 Globulin 3.4 g/dL (2.5-4.5) 05/17/20 05:43 Albumin/Globulin Ratio 0.8 Ratio (1.1-2.1) L 05/17/20 05:43 Lipase 120 Units/L (73-393) 05/16/20 00:12 Specimen Type Clean catch urine 05/16/20 04:38 Urine Color Yellow (YELLOW) 05/16/20 04:38 Urine Appearance Clear (CLEAR) 05/16/20 04:38 Urine pH 6.5 (5.0 - 8.0) 05/16/20 04:38 Ur Specific [place] 1.020 (1.000-1.030) 05/16/20 04:38 Urine Protein 1+ (NEGATIVE) 05/16/20 04:38 Urine Glucose (UA) Negative (NEGATIVE) 05/16/20 04:38 Urine Ketones Negative (NEGATIVE) 05/16/20 04:38 Urine Occult Blood 2+ (NEGATIVE) 05/16/20 04:38 Urine Nitrite Negative (NEGATIVE) 05/16/20 04:38 Urine Bilirubin Negative (NEGATIVE) 05/16/20 04:38 Urine Urobilinogen 1+ (NORMAL) 05/16/20 04:38 Ur Leukocyte Esterase 3+ (NEGATIVE) 05/16/20 04:38 Urine RBC 3-5 /HPF (0-3) A 05/16/20 04:38 Urine WBC 5-10 /HPF (0-5) A 05/16/20 04:38 Ur Squamous Epith Cells Few /HPF (NEGATIVE) 05/16/20 04:38 Urine Bacteria 1+ /HPF (NEGATIVE) 05/16/20 04:38 Urine Mucus Numerous /HPF (NEGATIVE) 05/16/20 04:38 Ur Culture Indicated? No/not indicated 05/16/20 04:38 Salicylates 4.6 mg/dL (2.8-20) 05/16/20 00:12 Urine Opiates Screen Negative (NEG=<300) 05/16/20 04:38 Urine Methadone Screen Negative (NEG=<300) 05/16/20 04:38 Acetaminophen 0.0 ug/mL (10-30) L 05/16/20 00:12 Ur Barbiturates Screen Negative (NEG=<200) 05/16/20 04:38 Ur Phencyclidine Scrn Negative (NEG=<25) 05/16/20 04:38 Ur Amphetamines Screen Positive (NEG=<1000) 05/16/20 04:38 U Benzodiazepines Scrn Negative (NEG=<200) 05/16/20 04:38 Urine Cocaine Screen Negative (NEG=<300) 05/16/20 04:38 U Marijuana (THC) Screen Positive (NEG=<50) A 05/16/20 04:38 Ethyl Alcohol mg/dL 3 mg/dL (0-19.9) 05/16/20 00:12 SARS CoV-2 RNA Rapid MICAELA Negative (NEGATIVE) 05/16/20 07:21 Reason For Visit: LEUKOCYTOSIS,METH ABUSE Discharge Diagnosis All Active Problems (Updated 05/16/20 @ 11:59 by Emma Dolan) Seizures (Acute) Bipolar disorder (Acute) CAD (coronary artery disease) (Acute) Dehydration (Acute) Acute UTI (Acute) Amphetamine abuse (Acute) Elevated WBC count (Acute) Plan of Treatment: Continue with present treatment and follow up plan. Pt is to keep follow up appointment as instructed and take medications as ordered. Discharge Medications Discharge Medications: No Known Drug Allergies Allergy (Verified 05/16/20 05:32) CONTINUE taking the following medications Ensure 1 ea PO DAILY 05/16/20 [History] albuterol sulfate [ProAir HFA] 2 inh INHALATION Q4-6H PRN 05/16/20 [History] benztropine 1 mg PO HS 05/16/20 [History] buspirone 15 mg PO BID 05/16/20 [History] clopidogrel 75 mg PO DAILY 05/16/20 [History] divalproex [Depakote] 1,000 mg PO HS 05/16/20 [History] fluoxetine 40 mg PO DAILY 05/16/20 [History] gabapentin 100 mg PO DAILY 05/16/20 [History] gabapentin 300 mg PO HS 05/16/20 [History] hydroxyzine pamoate 50 mg PO Q8H PRN 05/16/20 [History] metoprolol succinate 50 mg PO DAILY 05/16/20 [History] multivitamin 1 tab PO DAILY 05/16/20 [History] ondansetron HCl [Zofran] 4 mg PO Q8H PRN 05/16/20 [History] prazosin 1 mg PO HS 05/16/20 [History] risperidone [Risperdal] 2 mg PO HS 05/16/20 [History] trazodone 50 mg PO HS 05/16/20 [History] New Prescriptions alum-mag hydroxide-simeth [Maalox Advanced] 10 ml PO TID PRN 10 Days #300 ml 05/18/20 [Rx] ciprofloxacin HCl [Cipro] 500 mg PO BID 5 Days #10 tab 05/18/20 [Rx] pantoprazole 40 mg PO DAILY 30 Days #30 tab 05/18/20 [Rx] Discharge Disposition Assessment: Stable no acute distress noted at time of discharge. Discharge Plan Discharge Plan Patient Disposition: 01 HOME, SELF-CARE Condition: Stable Health Concerns: Post Hospitalization: new medications and changes needed to prevent readmission or further decline. Pt educated and given instructions on all concerns. Care Plan Goals: Problem: Pain/Alteration in Comfort Goal: Improve/ Resolve Pain; Achieve Pain Tolerance Instructions: Take pain medications as prescribed. Contact your primary care provider if your pain is unrelieved or worsens. Follow up with primary care provider as directed. Plan of Treatment: Continue with present treatment and follow up plan. Pt is to keep follow up appointment as instructed and take medications as ordered. Assessment: Stable no acute distress noted at time of discharge. Prescription drug monitoring program results: PDMP was not reviewed Prescriptions: New pantoprazole 40 mg Tablet,Delayed Release (Dr/Ec) 40 mg PO DAILY 30 Days Qty: 30 RF: 0 ciprofloxacin HCl [Cipro] 500 mg tablet 500 mg PO BID 5 Days Qty: 10 RF: 0 Continued multivitamin Tablet 1 tab PO DAILY RF: 0 trazodone 50 mg tablet 50 mg PO HS RF: 0 metoprolol succinate 50 mg tablet extended release 24 hr 50 mg PO DAILY RF: 0 prazosin 1 mg capsule 1 mg PO HS RF: 0 ondansetron HCl [Zofran] 4 mg tablet 4 mg PO Q8H PRN (Reason: Nausea) RF: 0 hydroxyzine pamoate 50 mg capsule 50 mg PO Q8H PRN (Reason: Itching) RF: 0 clopidogrel 75 mg tablet 75 mg PO DAILY RF: 0 divalproex [Depakote] 500 mg tablet,delayed release (DR/EC) 1,000 mg PO HS RF: 0 risperidone [Risperdal] 2 mg tablet 2 mg PO HS RF: 0 benztropine 1 mg tablet 1 mg PO HS RF: 0 gabapentin 300 mg capsule 300 mg PO HS RF: 0 albuterol sulfate [ProAir HFA] 90 mcg/actuation HFA aerosol inhaler 2 inh INHALATION Q4-6H PRNRF: 0 fluoxetine 20 mg capsule 40 mg PO DAILY RF: 0 Ensure Liquid 1 ea PO DAILY RF: 0 gabapentin 100 mg capsule 100 mg PO DAILY RF: 0 buspirone 15 mg tablet 15 mg PO BID RF: 0 Changed alum-mag hydroxide-simeth [Maalox Advanced] 200-200-20 mg/5 mL suspension 10 ml PO TID PRN (Reason: indigestion) 10 Days Qty: 300 RF: 0 Discontinued esomeprazole magnesium 40 mg capsule,delayed release(DR/EC) 40 mg PO DAILY RF: 0 nicotine 21 mg/24 hr patch 24 hour 21 mg transdermal DAILY RF: 0 ibuprofen [IBU-200] 200 mg tablet 200 mg PO Q4H PRN (Reason: Pain) RF: 0 Orders to Discharge Patient Discharge Orders: Discharge (Routine); Ordered 05/18/20 Ordered By: Emma Dolan Follow ups/Referrals Follow ups/Referrals: MIKAELA GARCIA [REFERRING] - 1 WEEK Instructions Instructions: Hand Washing, [id number], Antibiotic Medicine, Adult, [id number], Substance Use Disorder, Leukocytosis, You've Been Prescribed an Antibiotic in the Hospital for an Infection - [facility] (09/2017) Stand Alone Forms: Excuse From Work or School, Precautions for COVID19, Patient Portal, Social Distancing
[2020-05-18] MEDS: NEURONTIN CAP 100 MG PO SCH (08:57)
[2020-05-18] MEDS: BUSPAR PO SCH (08:57)
[2020-05-18] MEDS: NICOTINE PATCH TD SCH (08:57)
[2020-05-18] MEDS: PLAVIX PO SCH (09:00)
[2020-05-18] MEDS: PROzac PO SCH (09:02)
[2020-05-18] MEDS: PROTONIX TAB 40 MG PO SCH (09:02)
[2020-05-18] MEDS: ROCEPHIN VIAL 1 GRAM 1 G in NS 100 ML IV + SPIKE MINIBAG* 100 ML IV SCH (09:03)
[2020-05-18] MEDS: TAB-A-VITE PO SCH (09:03)
[2020-05-18] MEDS: TOPROL XL PO SCH (09:03)
== END 2020-05-18 09:15 | disposition home or self-care (01) ==
LOC: ER 22:47 → MED/SURG 22:47
PROVIDERS: ADMIT Family Medicine; ATTEND Family Medicine
DX: F31.9 Bipolar disorder, unspecified; R56.9 Unspecified convulsions; R10.84 Generalized abdominal pain; F12.90 Cannabis use, unspecified, uncomplicated; I25.10 Atherosclerotic heart disease of native coronary artery without angina pectoris; Z20.828 Contact with and (suspected) exposure to other viral communicable diseases; F15.10 Other stimulant abuse, uncomplicated; D72.828 Other elevated white blood cell count; N39.0 Urinary tract infection, site not specified; E86.0 Dehydration